=== PATIENT | male | born 1965 | race African-American/Black ===

== ENCOUNTER → 2016-07-05 | Outpatient (CLI) | payer OTHER ==
[2015-11-12 04:08] VITALS: BP 153/83
[~2016-07-05] MED LIST: ATOR10TA PO; FLUT9.9S NS; HYDR25TA9 PO; IBUP-1027 PO; INSU100V13 SQ; INSU100V31 SQ; METH500T7 PO; OXYC1TAB9 PO
[2016-07-05 18:16] LABS: TESTOSTERONE TOTAL 446 ng/dL (348-1197)
== END | disposition home or self-care (01) ==
LOC: LAB 12:10
PROVIDERS: ATTEND Nurse Practitioner Occupational Health
DX: N52.9 Male erectile dysfunction, unspecified (principal)
CPT/HCPCS: 36415; 84403; G0103

== ENCOUNTER → 2017-02-12 | Outpatient (CLI) | payer OTHER ==
[2015-11-12 04:08] VITALS: BP 153/83
--- NOTE | 2017-02-12 14:36 | RAD ---
Ultrasound kidneys Indication: 51-year-old male with proteinuria. Technique: Grayscale and color Doppler ultrasound images of the bilateral kidneys obtained. Comparison: None Findings: Right kidney: The kidney measures 12.7 x 5.7 x 6.1 cm with no hydronephrosis. Blood flow is seen in the renal hilum. Mild increase echogenicity seen within the cortex. Left kidney: The left kidney measures 13.8 x 6.2 x 8.1 cm with no hydronephrosis. There is a 5.1 x 3.2 x 3.0 cm anechoic cyst within the interpolar region of the kidney demonstrating no mural nodularity or internal septation. Mild increase echogenicity seen within the cortex. Blood flow is seen in the renal hilum. Bladder is suboptimally distended. Impression: 1. Mild increased echogenicity of the renal cortex may suggest medical renal disease. Clinically correlate with labs. 2. Simple left renal cyst.
== END | disposition home or self-care (01) ==
LOC: US 13:42
PROVIDERS: ATTEND Internal Medicine Nephrology
DX: N28.1 Cyst of kidney, acquired (principal); R80.0 Isolated proteinuria
CPT/HCPCS: 76770

== ENCOUNTER → 2017-02-28 | Outpatient (CLI) | payer OTHER ==
[2015-11-12 04:08] VITALS: BP 153/83
[2017-02-28 14:30] LABS: BILIRUBIN,URINE NEGATIVE (NEG); GLUCOSE,URINE >=1000 mg/dL (NEG); NITRITE,URINE NEGATIVE (NEG); PROTEIN,URINE NEGATIVE (NEG-TRACE); UROBILINOGEN,URINE 0.2 mg/dL (0.2 mg/dL)
[2017-02-28 14:40] LABS: ALBUMIN 4.1 g/dL (3.4-5.0); CALCIUM 9.3 mg/dL (8.5-10.1); CREATININE 1.5 mg/dL (0.7-1.3); PHOSPHORUS 2.8 mg/dL (2.6-4.7); POTASSIUM 4.1 mmol/L (3.5-5.1)
[2017-02-28 14:50] LABS: RBC,URINE OCC /HPF (0-2); WBC,URINE RARE /HPF (0-4)
[2017-02-28 14:51] LABS: BACTERIA,URINE 0 /HPF (0-FEW); SQUAMOUS EPITHELIAL CELL,UR OCC /LPF
[2017-03-01 03:19] LABS: UR PROTEIN RD 6.2 mg/dL (Not Estab.)
== END | disposition home or self-care (01) ==
LOC: LAB 13:58
PROVIDERS: ATTEND Internal Medicine Nephrology
DX: I12.9 Hypertensive chronic kidney disease with stage 1 through stage 4 chronic kidney disease, or unspecified chronic kidney disease (principal); N18.9 Chronic kidney disease, unspecified; E11.22 Type 2 diabetes mellitus with diabetic chronic kidney disease; E11.65 Type 2 diabetes mellitus with hyperglycemia; R80.0 Isolated proteinuria
CPT/HCPCS: 36415; 80069; 81001; 82043; 82570; 84156

== ENCOUNTER 2017-06-12 07:44 | Emergency (ER) | payer OTHER ==
[~2017-06-12] VITALS: Ht 180.3 cm; Wt 91.2 kg
[2017-06-12] MEDS ORDERED: IV NORMAL SALINE 1000ML BAG 1,000 ML IV SCH (08:21)
--- NOTE | 2017-06-12 08:27 | PHYS DOC ---
Past Medical History Past Medical History: Diabetes-Type II Additional Past Medical Histor: CHRONIC PAIN Past Surgical History: Other Additional Past Surgical Histo: LUMPECTOMY, HERNIA REPAIR Alcohol Use: None Drug Use: None Adult General Chief Complaint Chief Complaint: ABDOMINAL PAIN [facility] HPI This patient is a pleasant 52-year-old -[place] male who has a history of insulin-dependent diabetes, chronic pain of his lower back and knees bilaterally which is on chronic opiate therapy, and hypertension who presents with abdominal pain that began late last night. Patient describes pain as dull and achy that is gotten progressively worse. It is waxing and waning lasting anywhere from 20-40 minutes he has had several episodes of loose stools but no blood, no vomiting but has had some nausea. Patient denies any UTI symptoms, hematuria, urgency frequency or dysuria. Patient further denies any trauma. He does mention that he did have chest pain under his right breast yesterday for a few moments described as a dull ache with radiation to the top portion of the epigastrium and right upper quadrant. He denies any change with food or position. Pain is not increased with direct pressure over the abdomen or movement. Patient denies any sick contacts, travel outside the country or recent antibiotic use. He does not handle poultry, reptiles or eat raw food. Differential diagnosis considered upon arrival Acute pancreatitis. Appendicitis. Acute hepatitis. Peptic ulcer disease. Nonulcer dyspepsia. Irritable bowel disease. Functional gallbladder disorder. Sphincter of Oddi dysfunction. Diseases of the right kidney. Right-sided pneumonia. Gyqk-Lvwb-Qmuqip syndrome Subhepatic or intraabdominal abscess. Perforated viscus. Cardiac ischemia. Black spider envenomation UTI, pyonephritis, kidney stone, abdominal aneurysm, Cholelithiasis, cholecystitis, ascending cholangitis, Review of Systems Review of Systems Constitutional: This patient has had subjective chills and no documented fever Eyes: Denies change in visual acuity, redness, or eye pain [] HENT: Denies nasal congestion or sore throat [] Respiratory: Denies cough or shortness of breath [] Cardiovascular: No additional information not addressed in HPI [] GI: As patient has had abdominal pain with nausea but no vomiting but has had some loose stools described as diarrhea without blood or mucus : Denies dysuria or hematuria [] Musculoskeletal: Denies back pain or joint pain [] Integument: Denies rash or skin lesions [] Neurologic: Denies headache, focal weakness or sensory changes [] Endocrine: Denies polyuria or polydipsia [] All other systems were reviewed and found to be within normal limits, except as documented in this note. Current Medications Current Medications Current Medications Medications (Trade) Dose Ordered Sig/Lise Start Time Stop Time Status Last Admin Dose Admin Aspirin (Children'S Aspirin) 324 mg 1X ONCE 06/12/17 09:00 06/12/17 09:01 DC 06/12/17 08:49 324 MG Hydromorphone HCl (Dilaudid) 1 mg PRN Q15MIN PRN 06/12/17 08:30 06/13/17 08:29 06/12/17 08:49 1 MG Info (Do NOT chart on this entry -- for MONITORING) 1 each PRN DAILY PRN 06/12/17 08:45 06/14/17 08:44 Iohexol (Omnipaque 300 Mg/ml) 75 ml 1X ONCE 06/12/17 08:45 06/12/17 08:46 DC 06/12/17 09:07 75 ML Ketorolac Tromethamine (Toradol) 30 mg 1X ONCE 06/12/17 09:00 06/12/17 09:01 DC 06/12/17 08:50 30 MG Ondansetron HCl (Zofran) 4 mg 1X ONCE 06/12/17 09:00 06/12/17 09:01 DC 06/12/17 08:49 4 MG Sodium Chloride (Normal Saline Flush) 10 ml QSHIFT PRN 06/12/17 08:30 Allergies Allergies Allergies Coded Allergies Type Severity Reaction Last Updated Verified lisinopril Adverse Reaction Mild 11/01/15 Yes Physical Exam Physical Exam Other vital signs recorded on the chart patient and be hypertensive. Constitutional: Well developed, well nourished, no acute distress, non-toxic appearance. Patient somewhat sedate as he been taking narcotic medications but is arousable.[] HENT: Normocephalic, atraumatic, bilateral external ears normal, oropharynx dry no oral exudates, nose normal. [] Eyes: PERRLA, EOMI, conjunctiva normal, no discharge. [] Neck: Normal range of motion, no tenderness, supple, no stridor. [] Cardiovascular:Heart rate regular rhythm, no murmur [] Lungs & Thorax: Bilateral breath sounds clear to auscultation [] Abdomen: Bowel sounds normal, soft, patient has tenderness to palpation in the right lower quadrant and the right upper quadrant but no specific McBurney Paniagua's or McBurney's point tenderness palpation, he has no guarding rebound organomegaly, no Pardo Armstrong sign. Skin: Warm, dry, no erythema, no rash. [] Back: No obvious signs of trauma no CVA tenderness Extremities: No tenderness, no cyanosis, no clubbing, ROM intact, no edema. [] Neurologic: Alert and oriented X 3, normal motor function, normal sensory function, no focal deficits noted. [] Psychologic: Affect normal, judgement normal, mood normal. [] Current Patient Data Vital Signs Vital Signs Date Time Temp Pulse Resp B/P (MAP) Pulse Ox O2 Delivery O2 Flow Rate FiO2 06/12/17 07:50 97.9 95 18 138/79 (98) 96 Room Air 97.9 Lab Values Laboratory Tests Test 06/12/17 07:50 06/12/17 07:55 Urine Collection Type Unknown Urine Color Yellow Urine Clarity Clear Urine pH 6.5 Urine Specific [place] 1.020 Urine Protein Negative mg/dL (NEG-TRACE) Urine Glucose (UA) Negative mg/dL (NEG) Urine Ketones (Stick) Negative mg/dL (NEG) Urine Blood Negative (NEG) Urine Nitrite Negative (NEG) Urine Bilirubin Negative (NEG) Urine Urobilinogen Dipstick 1.0 mg/dL (0.2 mg/dL) Urine Leukocyte Esterase Negative (NEG) Urine RBC 0 /HPF (0-2) Urine WBC 0 /HPF (0-4) Urine Bacteria 0 /HPF (0-FEW) Urine Mucus Mod /LPF White Blood Count 11.4 x10^3/uL (4.0-11.0) H Red Blood Count 5.71 x10^6/uL (4.30-5.70) H Hemoglobin 14.7 g/dL (13.0-17.5) Hematocrit 45.0 % (39.0-53.0) Mean Corpuscular Volume 79 fL (79-100) Mean Corpuscular Hemoglobin 26 pg (25-35) Mean Corpuscular Hemoglobin Concent 33 g/dL (31-37) Red Cell Distribution Width 15.1 % (11.5-14.5) H Platelet Count 171 x10^3/uL (140-400) Neutrophils (%) (Auto) 79 % (31-73) H Lymphocytes (%) (Auto) 11 % (24-48) L Monocytes (%) (Auto) 10 % (0-9) H Eosinophils (%) (Auto) 0 % (0-3) Basophils (%) (Auto) 0 % (0-3) Neutrophils # (Auto) 9.0 x10^3uL (1.8-7.7) H Lymphocytes # (Auto) 1.3 x10^3/uL (1.0-4.8) Monocytes # (Auto) 1.1 x10^3/uL (0.0-1.1) Eosinophils # (Auto) 0.0 x10^3/uL (0.0-0.7) Basophils # (Auto) 0.0 x10^3/uL (0.0-0.2) Sodium Level 139 mmol/L (136-145) Potassium Level 3.8 mmol/L (3.5-5.1) Chloride Level 102 mmol/L (98-107) Carbon Dioxide Level 24 mmol/L (21-32) Anion Gap 13 (6-14) Blood Urea Nitrogen 13 mg/dL (8-26) Creatinine 1.0 mg/dL (0.7-1.3) Estimated GFR (Cockcroft-Gault) 94.2 Glucose Level 159 mg/dL (70-99) H Calcium Level 9.0 mg/dL (8.5-10.1) Magnesium Level 1.8 mg/dL (1.8-2.4) Total Bilirubin 0.6 mg/dL (0.2-1.0) Direct Bilirubin 0.1 mg/dL (0.0-0.2) Aspartate Amino Transferase (AST) 18 U/L (15-37) Alanine Aminotransferase (ALT) 34 U/L (16-63) Alkaline Phosphatase 114 U/L (46-116) Creatine Kinase 401 U/L (39-308) H Creatine Kinase MB (Mass) 1.0 ng/mL (0.0-3.6) Creatine Kinase MB Relative Index 0.2 % (0-4) Troponin I Quantitative < 0.017 ng/mL (0.000-0.055) PW-Wpa-R-Type Natriuretic Peptide 15 pg/mL (0-124) Total Protein 8.5 g/dL (6.4-8.2) H Albumin 4.0 g/dL (3.4-5.0) Lipase 86 U/L (73-393) Thyroid Stimulating Hormone (TSH) 1.448 uIU/mL (0.358-3.74) Laboratory Tests 06/12/17 07:55 Laboratory Tests 06/12/17 07:55 EKG EKG []Patient's EKG read by me at 7:55 AM 06/12/2017 demonstrates heart rate of 96 this is a normal sinus rhythm with P wave there were QRS, IA interval is 176 which is normal, QRS width is 86 which is normal, QTC is 428 which is normal, patient is a left axis deviation and a left anterior fascicular block but no ST segment T-wave changes consistent with acute coronary ischemia. This is an abnormal EKG Radiology/Procedures Radiology/Procedures [] [facility] [address] [place] [address] IMAGING REPORT Signed PATIENT: TIAGO CABRERA ACCOUNT: [id number] : 1965 LOCATION: ER AGE: 52 SEX: M EXAM STATUS: REG ER ORD. PHYSICIAN: REANNA OCAMPO MD REASON: abdominal pain PROCEDURE: CT ABD PELV W/ IV CONTRST ONLY CT of the abdomen and pelvis with contrast 06/12/2017 Indication: Abdominal pain Comparison study: None Findings: Multidetector CT imaging of the abdomen and pelvis is obtained following the administration of IV contrast. Visualized lung bases demonstrate no acute abnormality. Liver is diffusely low in attenuation suggesting hepatic steatosis. The liver is otherwise unremarkable. Gallbladder is unremarkable. The adrenal glands are unremarkable. The spleen is unremarkable. Mild nonspecific prominence of the pancreatic duct up to 4 mm is noted. Multifocal bilateral renal hypodensities are seen. Some of these are too small to characterize, larger lesions have an appearance consistent with cysts. Largest cyst in the left extends from the periphery to the hilum measuring 5.8 cm in diameter. On the right there is a single cyst measuring approximately 1.3 cm. There is no evidence of bowel obstruction. At the junction of the descending colon and transverse colon there is a short segment of thickened colon with significant pericolonic inflammatory change. Descending colonic diverticulosis is noted. No definitive extraluminal gas or abscess is identified. No significant free abdominal fluid is seen. Findings most likely reflect acute diverticulitis. Given the degree of bowel thickening and relatively short segment of affected bowel, recommend a post therapeutic follow-up colonoscopy to exclude underlying lesion. The bladder is grossly unremarkable. There is subcutaneous stranding involving the anterior abdominal wall surrounding the umbilicus. This of uncertain etiology. Cellulitis not excluded. No acute osseous changes are identified. Impression: 1.Acute diverticulitis involving the junction of descending and sigmoid colon. Given the degree of bowel wall thickening, posterior. Follow-up colonoscopy is recommended to exclude underlying mass or other lesion. 2. Hepatic steatosis 3. Mild prominence of the pancreatic duct 4 mm. The appearance is nonspecific. If there is clinical concern for obstructive etiology MRCP could be considered. PQRS Compliance Statement: One or more of the following individualized dose reduction techniques were utilized for this examination: 1. Automated exposure control 2. Adjustment of the mA and/or kV according to patient size 3. Use of iterative reconstruction technique DICTATED and SIGNED BY: CIARAN WAGNER MD DATE: 06/12/17 0940 CC: REANNA OCAMPO MD; KAREN GIBSON MD ~ Course & Med Decision Making Course & Med Decision Making Pertinent Labs and Imaging studies reviewed. (See chart for details) []Patient presented with a 18 hour history of left lower quadrant suprapubic abdominal pain is gotten progressively worse. He has had some chills and difficulty having bowel movements. He describes a couple episodes of loose stools with no blood or mucus. Over the course of his evaluation patient was given fluids, antiemetics and pain medications as felt much better. Patient tells me that their symptoms given during CC are improved. At about 9: 30 AM patient's CBC is been reported back with an elevated white count of 11.5. The rest of his CBC is unremarkable. Patient tells me that their symptoms given during CC are improved. We reviewed labs and radiology reports with patient at the bedside. Patient has an elevated white blood cell count, urinalysis, CBC and CMP otherwise unremarkable other than elevated white blood cell count. Patient's troponin is negative, patient's feeling markedly improved pain medication has improved his symptoms that of localized left lower quadrant. I discussed the CT scan findings with the patient demonstrated a diverticulitis with no evidence of abscess. We talked about the fatty liver and the cyst within the liver that he follow-up. Given the patient has no evidence of pancreatitis or biliary tract disease we will not pursue any further imaging at this time given precautions. He was offered admission to the hospital if his pain was out of control but he is able to tolerate by mouth medications and would like to go home. He is oriented oxycodone no other pain medication be provided. We'll provide a course of Cipro and Flagyl for his diverticulitis. Laboratory Tests Test 06/12/17 07:50 06/12/17 07:55 Urine Collection Type Unknown Urine Color Yellow Urine Clarity Clear Urine pH 6.5 Urine Specific [place] 1.020 Urine Protein Negative mg/dL (NEG-TRACE) Urine Glucose (UA) Negative mg/dL (NEG) Urine Ketones (Stick) Negative mg/dL (NEG) Urine Blood Negative (NEG) Urine Nitrite Negative (NEG) Urine Bilirubin Negative (NEG) Urine Urobilinogen Dipstick 1.0 mg/dL (0.2 mg/dL) Urine Leukocyte Esterase Negative (NEG) Urine RBC 0 /HPF (0-2) Urine WBC 0 /HPF (0-4) Urine Bacteria 0 /HPF (0-FEW) Urine Mucus Mod /LPF White Blood Count 11.4 x10^3/uL (4.0-11.0) Red Blood Count 5.71 x10^6/uL (4.30-5.70) Hemoglobin 14.7 g/dL (13.0-17.5) Hematocrit 45.0 % (39.0-53.0) Mean Corpuscular Volume 79 fL (79-100) Mean Corpuscular Hemoglobin 26 pg (25-35) Mean Corpuscular Hemoglobin Concent 33 g/dL (31-37) Red Cell Distribution Width 15.1 % (11.5-14.5) Platelet Count 171 x10^3/uL (140-400) Neutrophils (%) (Auto) 79 % (31-73) Lymphocytes (%) (Auto) 11 % (24-48) Monocytes (%) (Auto) 10 % (0-9) Eosinophils (%) (Auto) 0 % (0-3) Basophils (%) (Auto) 0 % (0-3) Neutrophils # (Auto) 9.0 x10^3uL (1.8-7.7) Lymphocytes # (Auto) 1.3 x10^3/uL (1.0-4.8) Monocytes # (Auto) 1.1 x10^3/uL (0.0-1.1) Eosinophils # (Auto) 0.0 x10^3/uL (0.0-0.7) Basophils # (Auto) 0.0 x10^3/uL (0.0-0.2) Sodium Level 139 mmol/L (136-145) Chloride Level 102 mmol/L (98-107) Carbon Dioxide Level 24 mmol/L (21-32) Anion Gap 13 (6-14) Blood Urea Nitrogen 13 mg/dL (8-26) Estimated GFR (Cockcroft-Gault) 94.2 Glucose Level 159 mg/dL (70-99) Calcium Level 9.0 mg/dL (8.5-10.1) Total Bilirubin 0.6 mg/dL (0.2-1.0) Direct Bilirubin 0.1 mg/dL (0.0-0.2) Aspartate Amino Transf (AST/SGOT) 18 U/L (15-37) Alkaline Phosphatase 114 U/L (46-116) Creatine Kinase 401 U/L (39-308) Creatine Kinase MB (Mass) 1.0 ng/mL (0.0-3.6) Creatine Kinase MB Relative Index 0.2 % (0-4) Troponin I Quantitative < 0.017 ng/mL (0.000-0.055) Total Protein 8.5 g/dL (6.4-8.2) Albumin 4.0 g/dL (3.4-5.0) Lipase 86 U/L (73-393) discharge: I've spoken with the patient and/or caregivers. I've explained the patient's condition, diagnosis and treatment plan based on information available to me at this time. I've answered the patient's and/or caregivers questions and addressed any concerns. The patient and/or caregivers have a good understanding the patient's diagnosis, condition and treatment plan as can be expected at this point. Vital signs have been stabilized. The patient's condition is stable for discharge from the emergency department. The patient will pursue further outpatient evaluation with her primary care provider or other designated consulting physician as outlined in the discharge instructions. Patient and/or caregivers are agreeable to this plan of care and follow-up instructions have been explained in detail. The patient and/or caregivers have received these instructions in written format and expressed understanding of these discharge instructions. The patient and her caregivers are aware that if any significant change in condition or worsening of symptoms should prompt him to immediately return to this of the closest emergency department. If an emergent department is not readily available I would encourage him to call 911. Dragon Disclaimer Dragon Disclaimer This electronic medical record was generated, in whole or in part, using a voice recognition dictation system. Departure Departure Impression: Primary Impression: Diverticulitis large intestine Disposition: HOME, SELF-CARE Condition: IMPROVED Referrals: KAREN GIBSON MD (PCP) Patient Instructions: Diverticulitis Additional Instructions: discharge: I've spoken with the patient and/or caregivers. I've explained the patient's condition, diagnosis and treatment plan based on information available to me at this time. I've answered the patient's and/or caregivers questions and addressed any concerns. The patient and/or caregivers have a good understanding the patient's diagnosis, condition and treatment plan as can be expected at this point. Vital signs have been stabilized. The patient's condition is stable for discharge from the emergency department. The patient will pursue further outpatient evaluation with her primary care provider or other designated consulting physician as outlined in the discharge instructions. Patient and/or caregivers are agreeable to this plan of care and follow-up instructions have been explained in detail. The patient and/or caregivers have received these instructions in written format and expressed understanding of these discharge instructions. The patient and her caregivers are aware that if any significant change in condition or worsening of symptoms should prompt him to immediately return to this of the closest emergency department. If an emergent department is not readily available I would encourage him to call 911. Scripts Metronidazole (FLAGYL) 500 Mg Tablet 500 MG PO TID for 10 Days, #30 TAB Prov: REANNA OCAMPO MD 06/12/17 Ciprofloxacin Hcl (CIPRO) 500 Mg Tablet 1 TAB PO BID, #20 TAB Prov: REANNA OCAMPO MD 06/12/17 REANNA OCAMPO MD Jun 12, 2017 08:27
[2017-06-12] MEDS ORDERED: 0.9 % SODIUM CHLORIDE 10 ML DISP.SYRIN. IV PRN (08:30)
[2017-06-12] MEDS ORDERED: HYDROmorphone 2 MG/ML VIAL IV/SQ PRN (08:30)
--- NOTE | 2017-06-12 08:35 | EKG ---
[facility] [address] [place] [address] Test Date: 2017-06-12 Test Time: 07:55:46 Pat Name: TIAGO GALLARDO Department: Room: Gender: Manager Acquisition: : 1965 Requested By: REANNA OCAMPO Order Number: [id number] Reading MD: Measurements Intervals [place] Rate: 96 P: 34 [place]: 176 QRS: -34 QRSD: 86 T: 28 QT: 334 QTc: 428 Interpretive Statements SINUS RHYTHM ABNORMAL LEFT AXIS DEVIATION S1,S2,S3 PATTERN LEFT ANTERIOR FASCICULAR BLOCK ABNORMAL ECG RI6.01 No previous ECG available for comparison
[2017-06-12 08:38] LABS: BASO % 0 % (0-3); EOS % 0 % (0-3); HEMOGLOBIN 14.7 g/dL (13.0-17.5); LYMPH # 1.3 x10^3/uL (1.0-4.8); LYMPH % 11 % (24-48); MEAN CORPUSCULAR HEMOGLOBIN 26 pg (25-35); MEAN CORPUSCULAR HGB CONC 33 g/dL (31-37); MEAN CORPUSCULAR VOLUME 79 fL (79-100); MONO % 10 % (0-9); NEUT % 79 % (31-73); PLATELET COUNT 171 x10^3/uL (140-400); RED BLOOD COUNT 5.71 x10^6/uL (4.30-5.70); RED CELL DISTRIBUTION WIDTH 15.1 % (11.5-14.5); WHITE BLOOD COUNT 11.4 x10^3/uL (4.0-11.0)
[2017-06-12] MEDS ORDERED: IOHEXOL 300 MG/ML 100ML VIAL. IV ONE (08:45)
[2017-06-12] MEDS ORDERED: CONTRAST GIVEN MC PRN (08:45)
[2017-06-12 08:46] LABS: GFR 94.2; POTASSIUM 3.8 mmol/L (3.5-5.1)
[2017-06-12 08:54] LABS: DIRECT BILIRUBIN 0.1 mg/dL (0.0-0.2); MAGNESIUM 1.8 mg/dL (1.8-2.4); TOTAL BILIRUBIN 0.6 mg/dL (0.2-1.0); TOTAL PROTEIN 8.5 g/dL (6.4-8.2)
[2017-06-12] MEDS ORDERED: ASPIRIN CHEWABLE 81 MG TABLET. PO ONE (09:00)
[2017-06-12] MEDS ORDERED: ONDANSETRON PF 4 MG/2 ML VIAL. IV ONE (09:00)
[2017-06-12] MEDS ORDERED: KETOROLAC 30 MG/ML INJ. IV ONE (09:00)
[2017-06-12 09:03] LABS: BILIRUBIN,URINE NEGATIVE (NEG); GLUCOSE,URINE NEGATIVE (NEG); NITRITE,URINE NEGATIVE (NEG); PH,URINE 6.5; PROTEIN,URINE NEGATIVE (NEG-TRACE)
[2017-06-12 09:10] LABS: BACTERIA,URINE 0 /HPF (0-FEW); RBC,URINE 0 /HPF (0-2); WBC,URINE 0 /HPF (0-4)
--- NOTE | 2017-06-12 09:50 | RAD ---
CT of the abdomen and pelvis with contrast 06/12/2017 Indication: Abdominal pain Comparison study: None Findings: Multidetector CT imaging of the abdomen and pelvis is obtained following the administration of IV contrast. Visualized lung bases demonstrate no acute abnormality. Liver is diffusely low in attenuation suggesting hepatic steatosis. The liver is otherwise unremarkable. Gallbladder is unremarkable. The adrenal glands are unremarkable. The spleen is unremarkable. Mild nonspecific prominence of the pancreatic duct up to 4 mm is noted. Multifocal bilateral renal hypodensities are seen. Some of these are too small to characterize, larger lesions have an appearance consistent with cysts. Largest cyst in the left extends from the periphery to the hilum measuring 5.8 cm in diameter. On the right there is a single cyst measuring approximately 1.3 cm. There is no evidence of bowel obstruction. At the junction of the descending colon and transverse colon there is a short segment of thickened colon with significant pericolonic inflammatory change. Descending colonic diverticulosis is noted. No definitive extraluminal gas or abscess is identified. No significant free abdominal fluid is seen. Findings most likely reflect acute diverticulitis. Given the degree of bowel thickening and relatively short segment of affected bowel, recommend a post therapeutic follow-up colonoscopy to exclude underlying lesion. The bladder is grossly unremarkable. There is subcutaneous stranding involving the anterior abdominal wall surrounding the umbilicus. This of uncertain etiology. Cellulitis not excluded. No acute osseous changes are identified. Impression: 1.Acute diverticulitis involving the junction of descending and sigmoid colon. Given the degree of bowel wall thickening, posterior. Follow-up colonoscopy is recommended to exclude underlying mass or other lesion. 2. Hepatic steatosis 3. Mild prominence of the pancreatic duct 4 mm. The appearance is nonspecific. If there is clinical concern for obstructive etiology MRCP could be considered. PQRS Compliance Statement: One or more of the following individualized dose reduction techniques were utilized for this examination: 1. Automated exposure control 2. Adjustment of the mA and/or kV according to patient size 3. Use of iterative reconstruction technique
[2017-06-12 10:00] VITALS: BP 115/59
[2017-06-12] MEDS ORDERED: METR500T PO (10:25)
[2017-06-12] MEDS ORDERED: CIPR500T94 PO (10:25)
== END 2017-06-12 10:45 | disposition home or self-care (01) ==
LOC: ER 07:44
DX: K57.32 Diverticulitis of large intestine without perforation or abscess without bleeding (principal); E11.9 Type 2 diabetes mellitus without complications; G89.29 Other chronic pain; I10 Essential (primary) hypertension; K58.9 Irritable bowel syndrome, unspecified; Z98.890 Other specified postprocedural states; Z79.4 Long term (current) use of insulin; Z88.8 Allergy status to other drugs, medicaments and biological substances
CPT/HCPCS: 36415; 74177; 80048; 80076; 81001; 82553; 83690; 83735; 83880; 84443; 84484; 85025; 93005; 96361; 96374; 96375; 99285; J1170; J1885; J2405; J7030; Q9967

== ENCOUNTER 2017-08-12 16:07 | Emergency (ER) | payer OTHER ==
[2017-08-12] MEDS: IPRATRPIUM/ALBUTEROL 0.5/2.5MG 3 ML NEBU. NEB ×2 (17:43)
== END 2017-08-12 18:43 | disposition home or self-care (01) ==
LOC: ER 18:43
DX: J40 Bronchitis, not specified as acute or chronic (principal); E11.9 Type 2 diabetes mellitus without complications; G89.29 Other chronic pain; E78.00 Pure hypercholesterolemia, unspecified; I10 Essential (primary) hypertension; Z88.8 Allergy status to other drugs, medicaments and biological substances
CPT/HCPCS: 36600; 71046; 94640; 99284-25; J7620

== ENCOUNTER → 2017-09-14 | Outpatient (CLI) | payer OTHER | END | disposition home or self-care (01) | LOC: LAB 10:09 | DX: R05 Cough (principal) | CPT/HCPCS: 87070; 87205 ==

== ENCOUNTER → 2017-09-14 | Outpatient (CLI) | payer OTHER ==
[2017-09-14 10:46] LABS: BILIRUBIN,URINE NEGATIVE (NEG); CLARITY,URINE CLEAR; COLOR,URINE YELLOW; GLUCOSE,URINE NEGATIVE (NEG); NITRITE,URINE NEGATIVE (NEG); PROTEIN,URINE NEGATIVE (NEG-TRACE); UROBILINOGEN,URINE 0.2 mg/dL (0.2 mg/dL)
[2017-09-14 11:01] LABS: RBC,URINE 0 /HPF (0-2); SQUAMOUS EPITHELIAL CELL,UR OCC /LPF
[2017-09-14 11:02] LABS: BACTERIA,URINE 0 /HPF (0-FEW); WBC,URINE 0 /HPF (0-4)
[2017-09-14 11:13] LABS: ALBUMIN 3.8 g/dL (3.4-5.0); ANION GAP 11 (6-14); BLOOD UREA NITROGEN 15 mg/dL (8-26); CALCIUM 9.4 mg/dL (8.5-10.1); CARBON DIOXIDE 28 mmol/L (21-32); CHLORIDE 103 mmol/L (98-107); CREATININE 1.2 mg/dL (0.7-1.3); GFR 76.3; GLUCOSE 170 mg/dL (70-99); PHOSPHORUS 4.2 mg/dL (2.6-4.7); POTASSIUM 3.8 mmol/L (3.5-5.1); SODIUM 142 mmol/L (136-145)
[2017-09-14 20:12] LABS: CREAT RD UR 176.6 mg/dL (Not Estab.); MICRO CREAT RATIO 36.7 mg/g creat (0.0-30.0); MICROALB RD UR 64.8 ug/mL (Not Estab.)
== END | disposition home or self-care (01) ==
LOC: LAB 10:10
DX: I12.9 Hypertensive chronic kidney disease with stage 1 through stage 4 chronic kidney disease, or unspecified chronic kidney disease (principal); E11.65 Type 2 diabetes mellitus with hyperglycemia; N17.8 Other acute kidney failure; E86.0 Dehydration; R80.0 Isolated proteinuria; Z68.29 Body mass index [BMI] 29.0-29.9, adult
CPT/HCPCS: 36415; 80069; 81001; 82043; 82570

== ENCOUNTER → 2017-12-31 | Outpatient (CLI) | payer OTHER ==
[2018-01-01 08:34] LABS: NEGATIVE OBC STREP NEG; POSITIVE OBC STREP POS
== END | disposition home or self-care (01) ==
LOC: LAB 15:47
DX: J06.9 Acute upper respiratory infection, unspecified (principal); I12.9 Hypertensive chronic kidney disease with stage 1 through stage 4 chronic kidney disease, or unspecified chronic kidney disease; E11.22 Type 2 diabetes mellitus with diabetic chronic kidney disease; N18.9 Chronic kidney disease, unspecified; E78.00 Pure hypercholesterolemia, unspecified
CPT/HCPCS: 87880

== ENCOUNTER → 2018-02-08 | Outpatient (CLI) | payer OTHER ==
[2017-08-12 17:13] VITALS: BP 155/84
[~2018-02-08] MED LIST changes: +AZIT250T PO; +CIPR500T94 PO; +HYDR5SUS PO; +METR500T PO; +OXYC-411 PO; -OXYC1TAB9 PO; +PRED50TA PO; +PROAIR HFA8.5 GM INH
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
== END | disposition home or self-care (01) ==
LOC: RAD 16:16
PROVIDERS: ATTEND Internal Medicine Cardiovascular Disease
DX: S80.852A Superficial foreign body, left lower leg, initial encounter (principal); X58.XXXA Exposure to other specified factors, initial encounter; Y93.89 Activity, other specified; Y92.89 Other specified places as the place of occurrence of the external cause; Y99.8 Other external cause status; E78.5 Hyperlipidemia, unspecified
CPT/HCPCS: 73590

== ENCOUNTER 2018-03-18 07:35 | Emergency (ER) | payer OTHER ==
[~2018-03-18] VITALS: Ht 180.3 cm; Wt 90.7 kg
--- NOTE | 2018-03-18 08:03 | PHYS DOC ---
Past Medical History Past Medical History: Diabetes-Type II, High Cholesterol, Hypertension Additional Past Medical Histor: CHRONIC PAIN Past Surgical History: Other Additional Past Surgical Histo: LUMPECTOMY, HERNIA REPAIR Alcohol Use: None Drug Use: None Adult General Chief Complaint Chief Complaint: ABDOMINAL PAIN HPI HPI Patient is a 53 year old male presenting with abdominal pain described as lower sharp radius to the back bilaterally worse on the left no fever tenesmus noted by history the patient no vomiting no chest pain history of diverticulosis feels similar. Symptoms are moderate slowly worsening with time times one day Review of Systems Review of Systems Constitutional: Denies fever or chills [] Eyes: Denies change in visual acuity, redness, or eye pain [] HENT: Denies nasal congestion or sore throat [] Respiratory: Denies cough or shortness of breath [] Chronic back pain Neurologic: Denies headache, focal weakness or sensory changes [] Endocrine: Denies polyuria or polydipsia [] All other systems were reviewed and found to be within normal limits, except as documented in this note. Current Medications Current Medications Current Medications Medications (Trade) Dose Ordered Sig/Lise Start Time Stop Time Status Last Admin Dose Admin Info (CONTRAST GIVEN -- Rx MONITORING) 1 each PRN DAILY PRN 03/18/18 08:30 03/20/18 08:29 Iohexol (Omnipaque 300 Mg/ml) 75 ml 1X ONCE 03/18/18 08:30 03/18/18 08:31 DC 03/18/18 08:42 75 ML Morphine Sulfate (Morphine Sulfate) 6 mg 1X ONCE 03/18/18 08:00 03/18/18 08:01 DC 03/18/18 08:11 6 MG Sodium Chloride 1,000 ml @ 1,000 mls/hr 1X ONCE 03/18/18 08:00 03/18/18 08:59 DC 03/18/18 08:10 1,000 MLS/HR Allergies Allergies Allergies Coded Allergies Type Severity Reaction Last Updated Verified lisinopril Adverse Reaction Mild 11/01/15 Yes Physical Exam Physical Exam Constitutional: Well developed, well nourished, no acute distress, non-toxic appearance. [] HENT: Normocephalic, atraumatic, bilateral external ears normal, oropharynx moist, no oral exudates, nose normal. [] Eyes: PERRLA, EOMI, conjunctiva normal, no discharge. [] Neck: Normal range of motion, no tenderness, supple, no stridor. [] Pulmonary: Normal respiratory effort no increased work of breathing no obvious chest wall trauma Abdomen: Bowel sounds normal, soft, left lower quadrant tenderness is noted tenderness, no masses, no pulsatile masses. [] Skin: Warm, dry, no erythema, no rash. [] Extremities: No tenderness, no cyanosis, no clubbing, ROM intact, no edema. [] Neurologic: Alert and oriented X 3, normal motor function, normal sensory function, no focal deficits noted. [] Psychologic: Affect normal, judgement normal, mood normal. [] Current Patient Data Vital Signs Vital Signs Date Time Temp Pulse Resp B/P (MAP) Pulse Ox O2 Delivery O2 Flow Rate FiO2 03/18/18 08:11 20 99 Room Air 03/18/18 07:40 98.7 94 158/87 (110) 98.7 Lab Values Laboratory Tests Test 03/18/18 07:59 03/18/18 08:00 Glucose (Fingerstick) 287 mg/dL (70-99) H White Blood Count 9.0 x10^3/uL (4.0-11.0) Red Blood Count 5.76 x10^6/uL (4.30-5.70) H Hemoglobin 15.1 g/dL (13.0-17.5) Hematocrit 45.1 % (39.0-53.0) Mean Corpuscular Volume 78 fL (79-100) L Mean Corpuscular Hemoglobin 26 pg (25-35) Mean Corpuscular Hemoglobin Concent 34 g/dL (31-37) Red Cell Distribution Width 15.3 % (11.5-14.5) H Platelet Count 144 x10^3/uL (140-400) Neutrophils (%) (Auto) 73 % (31-73) Lymphocytes (%) (Auto) 18 % (24-48) L Monocytes (%) (Auto) 9 % (0-9) Eosinophils (%) (Auto) 0 % (0-3) Basophils (%) (Auto) 0 % (0-3) Neutrophils # (Auto) 6.6 x10^3uL (1.8-7.7) Lymphocytes # (Auto) 1.6 x10^3/uL (1.0-4.8) Monocytes # (Auto) 0.8 x10^3/uL (0.0-1.1) Eosinophils # (Auto) 0.0 x10^3/uL (0.0-0.7) Basophils # (Auto) 0.0 x10^3/uL (0.0-0.2) Sodium Level 139 mmol/L (136-145) Potassium Level 3.9 mmol/L (3.5-5.1) Chloride Level 100 mmol/L (98-107) Carbon Dioxide Level 27 mmol/L (21-32) Anion Gap 12 (6-14) Blood Urea Nitrogen 14 mg/dL (8-26) Creatinine 1.2 mg/dL (0.7-1.3) Estimated GFR (Cockcroft-Gault) 76.1 BUN/Creatinine Ratio 12 (6-20) Glucose Level 296 mg/dL (70-99) H Calcium Level 9.0 mg/dL (8.5-10.1) Total Bilirubin 0.7 mg/dL (0.2-1.0) Aspartate Amino Transferase (AST) 16 U/L (15-37) Alanine Aminotransferase (ALT) 40 U/L (16-63) Alkaline Phosphatase 147 U/L (46-116) H Total Protein 8.4 g/dL (6.4-8.2) H Albumin 3.8 g/dL (3.4-5.0) Albumin/Globulin Ratio 0.8 (1.0-1.7) L Laboratory Tests 03/18/18 08:00 Laboratory Tests 03/18/18 08:00 EKG EKG [] Radiology/Procedures Radiology/Procedures [] Impressions: IMPRESSION: 1. Colonic diverticulosis with colonic mural thickening and moderate paracolic inflammation at the mid sigmoid level suggesting acute diverticulitis. 2. Hepatomegaly with hepatic steatosis. 3. Bilateral renal cysts. 4. Fat-containing umbilical hernia. 5. Stable small sclerotic foci in the right iliac bone. PQRS Compliance Statement: One or more of the following individualized dose reduction techniques were utilized for this examination: 1. Automated exposure control 2. Adjustment of the mA and/or kV according to patient size 3. Use of iterative reconstruction technique Electronically signed by: Soy Tavarez MD (03/18/2018 9:25 AM) [facility] Course & Med Decision Making Course & Med Decision Making Pertinent Labs and Imaging studies reviewed. (See chart for details) []Left lower quadrant pain suspect diverticulitis. Noted the CT scan did tell the patient importance of getting a colonoscopy by the end of the year call within 4-6 weeks after feeling better to get it scheduled. Take Augmentin take pain medication return precautions advised Luz Maria Disclaimer Dragon Disclaimer This electronic medical record was generated, in whole or in part, using a voice recognition dictation system. Departure Departure Impression: Primary Impression: Sigmoid diverticulitis Disposition: HOME, SELF-CARE Condition: STABLE Referrals: ALESSANDRA COLLIER MD (PCP) ARCHIE MUELLER MD Mar 18, 2018 08:03
[2018-03-18] MEDS: IV NORMAL SALINE 1000ML BAG 1,000 ML IV ONE (08:10)
[2018-03-18] MEDS: MORPHINE SULFATE 4 MG/ML VIAL. IV ONE ×2 (08:11→09:49)
[2018-03-18 08:17] LABS: BASO % 0 % (0-3); EOS % 0 % (0-3); HEMATOCRIT 45.1 % (39.0-53.0); HEMOGLOBIN 15.1 g/dL (13.0-17.5); LYMPH # 1.6 x10^3/uL (1.0-4.8); LYMPH % 18 % (24-48); MEAN CORPUSCULAR HEMOGLOBIN 26 pg (25-35); MEAN CORPUSCULAR HGB CONC 34 g/dL (31-37); MEAN CORPUSCULAR VOLUME 78 fL (79-100); MONO # 0.8 x10^3/uL (0.0-1.1); MONO % 9 % (0-9); NEUT # 6.6 x10^3uL (1.8-7.7); NEUT % 73 % (31-73); PLATELET COUNT 144 x10^3/uL (140-400); RED BLOOD COUNT 5.76 x10^6/uL (4.30-5.70); RED CELL DISTRIBUTION WIDTH 15.3 % (11.5-14.5)
[2018-03-18 08:26] LABS: CREATININE 1.2 mg/dL (0.7-1.3); GFR 76.1; POTASSIUM 3.9 mmol/L (3.5-5.1)
[2018-03-18] MEDS ORDERED: CONTRAST GIVEN. MC PRN (08:30)
[2018-03-18 08:32] LABS: ALBUMIN 3.8 g/dL (3.4-5.0); ALBUMIN/GLOBULIN RATIO 0.8 (1.0-1.7); TOTAL BILIRUBIN 0.7 mg/dL (0.2-1.0); TOTAL PROTEIN 8.4 g/dL (6.4-8.2)
[2018-03-18] MEDS: IOHEXOL 300 MG/ML 100ML VIAL. IV ONE (08:42)
--- NOTE | 2018-03-18 09:28 | RAD ---
CT of the abdomen and pelvis with contrast, 03/18/2018: HISTORY: Left-sided pain, previous diverticulitis Multidetector CT imaging was performed following an IV bolus injection of iodinated contrast material. No oral contrast material was administered for this study. Comparison is made to an exam from 06/12/2017. The liver is of lower than normal density compatible with hepatic steatosis. Liver measures 20 cm in craniocaudad extent at the level the right lobe. The gallbladder is unremarkable. No pancreatic abnormality is seen. The spleen is of normal size. There are several unchanged low-density lesions in both kidneys compatible with cysts. The largest of these lies on the left and measures 5.5 cm. The kidneys show no evidence of obstruction. The abdominal aorta is unremarkable. No abdominal or pelvic adenopathy is seen. The prostate gland is slightly enlarged. Scattered diverticula are present in the colon. There is moderate mural thickening involving the mid sigmoid colon with streaky paracolic increased densities compatible with inflammation. Diverticulitis is most likely. No discrete paracolic fluid collection is seen to suggest abscess. Similar findings were present on the previous study, although at that time there was greater involvement of the proximal sigmoid colon. The bowel loops are not dilated. No free air or significant free fluid is evident in the abdomen or pelvis. Again noted is an umbilical hernia containing only fat. There is an unchanged 2 cm sclerotic focus in the medial right iliac bone near the sacroiliac joint. An additional smaller sclerotic focus is seen more laterally in the right iliac bone, also unchanged. Mild scattered degenerative changes are present in the spine. IMPRESSION: 1. Colonic diverticulosis with colonic mural thickening and moderate paracolic inflammation at the mid sigmoid level suggesting acute diverticulitis. 2. Hepatomegaly with hepatic steatosis. 3. Bilateral renal cysts. 4. Fat-containing umbilical hernia. 5. Stable small sclerotic foci in the right iliac bone. PQRS Compliance Statement: One or more of the following individualized dose reduction techniques were utilized for this examination: 1. Automated exposure control 2. Adjustment of the mA and/or kV according to patient size 3. Use of iterative reconstruction technique Electronically signed by: Soy Tavarez MD (03/18/2018 9:25 AM) [facility]
[2018-03-18] MEDS ORDERED: AMOX1TAB61 PO (09:38)
[2018-03-18] MEDS ORDERED: OXYC-328 PO (09:38)
[2018-03-18] MEDS: AMOXICILLIN/K CLAV 875/125MG TABLET. PO ONE (09:47)
[2018-03-18 10:09] LABS: BILIRUBIN,URINE NEGATIVE (NEG); CLARITY,URINE CLEAR; COLOR,URINE YELLOW; NITRITE,URINE NEGATIVE (NEG); PROTEIN,URINE NEGATIVE (NEG-TRACE); UROBILINOGEN,URINE 0.2 mg/dL (0.2 mg/dL)
[2018-03-18 10:15] VITALS: BP 132/61
[2018-03-18 10:17] LABS: BACTERIA,URINE 0 /HPF (0-FEW); RBC,URINE 0 /HPF (0-2); SQUAMOUS EPITHELIAL CELL,UR OCC /LPF; WBC,URINE 0 /HPF (0-4)
== END 2018-03-18 10:27 | disposition home or self-care (01) ==
LOC: ER 07:35
DX: K57.32 Diverticulitis of large intestine without perforation or abscess without bleeding (principal); G89.29 Other chronic pain; M54.9 Dorsalgia, unspecified; E11.9 Type 2 diabetes mellitus without complications; E78.00 Pure hypercholesterolemia, unspecified; I10 Essential (primary) hypertension
CPT/HCPCS: 36415; 74177; 80053; 81001; 82962; 85025; 96374; 96376; 99285; J2270; J7030; Q9967